=== PATIENT | male | born 1990 | race Caucasian/White ===

== ENCOUNTER 2019-05-30 17:09 | Emergency (ER) | payer OTHER ==
[2019-05-30] MEDS ORDERED: Ketorolac 30 MG/ML SDV IM ONE (18:19)
[2019-05-30 18:26] VITALS: BP 128/68
--- NOTE | 2019-05-30 18:50 | EDM.PDOC ---
Scribed by Leslie Sommer 05/30/19 [id number] for Jag Ledezma MD ED HPI GENERAL MEDICAL PROBLEM - General Chief Complaint: Back Pain or Injury Stated Complaint: BACK PAIN WC Time Seen by Provider: 05/30/19 18:05 Source of Information: Reports: Patient, RN, RN Notes Reviewed History Limitations: Reports: No Limitations - History of Present Illness INITIAL COMMENTS - FREE TEXT/NARRATIVE: Patient presents to ER with complaint of back pain sustained just prior to arrival at work when he lifted large bread trays, felt a pop in the low back and has severe sharp shooting and muscle spasms through the low back into the right buttock and hip. Denies loss of bowel or bladder control. Denies saddle area numbness. Denies any lower extremity weakness. Denies any prior history of back pain or injury. Onset: Today Duration: Constant Location: Reports: Back (low) Quality: Reports: Ache Severity: Severe Improves with: Reports: None Worsens with: Reports: None Associated Symptoms: Reports: No Other Symptoms Right Hip Pain Score (Numeric/FACES): 10 - Related Data Allergies Allergy/AdvReac Type Severity Reaction Status Date / Time No Known Allergies Allergy Verified 06/04/16 12:52 Home Meds: Home Meds . [No Known Home Meds] 06/04/16 [History] Past Medical History HEENT History: Reports: None Cardiovascular History: Reports: None Respiratory History: Reports: None Gastrointestinal History: Reports: None Genitourinary History: Reports: None Musculoskeletal History: Reports: None Neurological History: Reports: None Psychiatric History: Reports: None Endocrine/Metabolic History: Reports: None Hematologic History: Reports: None Immunologic History: Reports: None Oncologic (Cancer) History: Reports: None Dermatologic History: Reports: None Social & Family History - Family History Family Medical History: Noncontributory - Living Situation & Occupation Living situation: Reports: with Family Occupation: Employed ED ROS GENERAL - Review of Systems Review Of Systems: ROS reveals no pertinent complaints other than HPI. ED EXAM,LOWER BACK PAIN/INJURY - Physical Exam Exam: See Below Exam Limited By: No Limitations General Appearance: Alert, WD/WN, No Apparent Distress Throat/Mouth: Normal Inspection, Normal Voice, No Airway Compromise Head: Atraumatic, Normocephalic Neck: Normal Inspection, Supple, Non-Tender, Full Range of Motion Respiratory/Chest: No Respiratory Distress Cardiovascular: Normal Peripheral Pulses GI/Abdominal: Normal Bowel Sounds, Soft, Non-Tender (Male) Exam: Deferred Rectal (Males) Exam: Deferred Back Exam: Decreased Range of Motion (lumbar, lumbo-sacral junction), Muscle Spasm (paraspinal lumbar region), Paraspinal Tenderness, Vertebral Tenderness ( slightly at lower lumbar spine). No: CVA Tenderness (L), CVA Tenderness (R) Extremities: Normal Inspection, Normal Range of Motion, Non-Tender, No Pedal Edema, Normal Capillary Refill Neurological: Alert, Normal Mood/Affect, Normal Dorsiflexion, CN II-XII Intact, Normal Plantar Flexion, Normal Reflexes, No Motor/Sensory Deficits, Oriented x 3 , Straight Leg Raise (R), Other (antalgic gait favoring right leg). No: Straight Leg Raise (L) Psychiatric: Normal Affect, Normal Mood Skin Exam: Warm, Dry, Intact, Normal Color, No Rash Course - Vital Signs Last Recorded V/S: Last Vital Signs Temp 97.6 F 05/30/19 17:40 Pulse 95 05/30/19 17:40 Resp 16 05/30/19 17:40 BP 128/68 05/30/19 17:40 Pulse Ox 98 05/30/19 17:40 - Orders/Labs/Meds Orders: Active Orders 24 hr Category Date Time Status Lumbar Spine 2 or 3V [CR] Urgent Exams 05/30/19 18:20 Ordered Meds: Medications Discontinued Medications Generic Name Dose Route Start Last Admin Trade Name Freq PRN Reason Stop Dose Admin Ketorolac Tromethamine 60 mg 05/30/19 18:19 05/30/19 18:34 Toradol IM 05/30/19 18:20 60 mg ONETIME ONE Administration Orphenadrine Citrate 60 mg 05/30/19 18:19 05/30/19 18:34 Norflex IM 05/30/19 18:20 60 mg ONETIME ONE Administration - Radiology Interpretation Free Text/Narrative:: XR Lumbar: no acute fracture, see Rad. report. Departure - Departure Time of Disposition: 18:56 Disposition: Home, Self-Care 01 Condition: Fair Clinical Impression: Acute lumbar back pain Qualifiers: Back pain laterality: right Sciatica presence: with sciatica Sciatica laterality: sciatica of right side Qualified Code(s): M54.41 - Lumbago with sciatica, right side Acute lumbar myofascial strain Qualifiers: Encounter type: initial encounter Qualified Code(s): S39.012A - Strain of muscle, fascia and tendon of lower back, initial encounter - Discharge Information *PRESCRIPTION DRUG MONITORING PROGRAM REVIEWED*: No *COPY OF PRESCRIPTION DRUG MONITORING REPORT IN PATIENT APURVA: No Instructions: Lumbosacral Strain, Acute Back Pain, Adult Forms: ED Department Discharge Additional Instructions: Rx: Naprosyn 500mg *Take with meals. Rx: Cyclobenzaprine 10mg *Do not drive while under the influence of this medication. Rx: [place] (Hydrocodone APAP) 5mg/325mg *Do not drive while under the influence of this medication. Follow up in clinic in 4 to 5 days for recheck. - My Orders Last 24 Hours: My Active Orders 05/30/19 18:20 Lumbar Spine 2 or 3V [CR] Urgent - Assessment/Plan Last 24 Hours: My Active Orders 05/30/19 18:20 Lumbar Spine 2 or 3V [CR] Urgent I have read and agree with the documentation that has been completed regarding this visit. By signing this record, I attest that the documentation was completed in my physical presence and is an accurate record of the encounter.
== END 2019-05-30 19:13 | disposition home or self-care (01) ==
LOC: DL.ED 17:09
DX: S39.012A Strain of muscle, fascia and tendon of lower back, initial encounter (principal); M54.41 Lumbago with sciatica, right side; X50.0XXA Overexertion from strenuous movement or load, initial encounter
CPT/HCPCS: 72100; 96372; 99283-25; J1885; J2360